=== PATIENT | female | born 1990 | race Caucasian/White ===

== ENCOUNTER 2016-09-04 11:23 | Day surgery (SDC) | payer BC ==
[~2016-09-04 11:23] MED LIST: Buffered Lidocaine 1% SYR 3ML* 3 ML/SYR SYRINGE INTRADERM ONE; Dexamethasone IV* 4 MG/ML 1 ML (4 MG) IV SLOW PU ONE; Famotidine IV* 10 MG/ML 2 ML (20 mg) IV ONE
[2016-09-04] MEDS ORDERED: ceFAZolin 2 GM PREMIX (*) 2 GM/50 ML BAG IVPB ONE (11:46)
[2016-09-04] MEDS ORDERED: Dexamethasone IV* 4 MG/ML 1 ML (4 MG) ONE (11:47)
[2016-09-04] MEDS ORDERED: Famotidine IV* 10 MG/ML 2 ML (20 mg) ONE (11:47)
[2016-09-04] MEDS ORDERED: Bupivacaine 0.5% SDV PF* 30 ML VIAL ONE (12:43)
[2016-09-04 12:45] LABS: Manual Entry Verification AS; UR Preg Internal Control QC Line Present; UR Preg Kit Lot# 6060104
[2016-09-04] MEDS ORDERED: Midazolam* 1 MG/ML 5 ML VIAL (5 MG) ONE (13:08)
[2016-09-04] MEDS ORDERED: fentaNYL* 50 MCG/ML 2 ML VIAL (100 MCG VIAL) ONE ×4 (13:08→15:19)
[2016-09-04] MEDS ORDERED: Ketorolac INJ* 30 MG/ML 1 ML VIAL ONE (13:22)
[2016-09-04] MEDS ORDERED: Lidocaine 2% PF * 5 ML VIAL ONE (13:22)
[2016-09-04] MEDS ORDERED: Propofol* 10 MG/ML 20 ML BTL IV PUSH ONE (13:22)
[2016-09-04] MEDS ORDERED: KETAMINE HCL* 50 MG/ML 10 ML VIAL ONE (13:31)
[2016-09-04] MEDS ORDERED: PROCHLORPERAZINE INJ 5 MG/ML 2 ML VIAL IV PRN (13:49)
[2016-09-04] MEDS ORDERED: oxyCODONE/Acetamin 5/325 MG* TAB ONE (14:45)
[2016-09-04] MEDS: fentaNYL* 50 MCG/ML 2 ML VIAL (100 MCG VIAL) IV PRN ×5 (14:48→15:28)
[2016-09-04] MEDS: oxyCODONE/Acetamin 5/325 MG* TAB PO PRN ×2 (14:49→14:51)
[2016-09-04] MEDS ORDERED: PROCHLORPERAZINE INJ 5 MG/ML 2 ML VIAL ONE (15:15)
[2016-09-04] MEDS ORDERED: Morphine INJ* 10 MG/ML 1 ML CARPUJECT ONE (16:21)
[2016-09-04 16:31] VITALS: BP 136/85
--- NOTE | 2016-09-05 02:49 | OP ---
DATE OF OPERATION: 09/04/16 [facility] DATE OF : [birth year] SURGEON: Solitario Hoffman MD FURRIER DESIGNER: Susan Ortiz PA-C ANESTHESIOLOGIST: Vinny Contreras MD ANESTHESIA: General PRE-OP DIAGNOSIS: Malunion, right medial malleolar osteotomy POST-OP DIAGNOSIS: Malunion, right medial malleolar osteotomy. OPERATIVE PROCEDURE: Revision, right medial malleolar osteotomy. DESCRIPTION OF PROCEDURE: The patient was taken to the operating room, general anesthesia administered. We opened up longitudinally over the medial malleolus and removed the previous 4-0 screws. We then identified the plane of the osteotomy using a small C-wire and the mini C-arm. We then created new osteotomy where the old one lay and re-reduced the medial malleolus translating this distally a few millimeters. X-ray intraoperatively showed satisfactory position. We then used a spring plate of one-third tubular along the direct medial aspect of the medial malleolus and the screws were placed medial to lateral. This compressed the osteotomy in its anatomic location. We also removed the small mini fragment screw from the osteochondral defect, which appeared very healthy. We closed the subcu with 2-0 Vicryl and ramon for the skin and a compression dressing plaster splint. [id number]/[facility] #: [id number] [facility]
--- NOTE | 2016-09-05 07:47 | RAD ---
INDICATION: Right ankle revision tibial osteotomy, M 93.271 COMPARISONS: August 21, 2016 TECHNIQUE: Fluoroscopy was provided for a surgical procedure. Total fluoroscopy time is: 9.2 seconds FINDINGS: Spot images demonstrate internal fixation of the distal tibia IMPRESSION: FLUOROSCOPY WAS PROVIDED FOR A SURGICAL PROCEDURE CPT II Codes: 6045F
== END 2016-09-04 17:08 | disposition home or self-care (01) ==
LOC: OR 11:23
PROVIDERS: ATTEND Orthopaedic Surgery
DX: T84.3 Mechanical complication of other bone devices, implants and grafts (principal)
CPT/HCPCS: 76000; 81025; 87070; 87073; 87205; 88300; A9270-GY; C1713; C1776; J0690; J0780; J1100; J1885; J2250; J2270; J2704; J3010

== ENCOUNTER 2019-03-26 19:44 | Inpatient (IN) | payer BC, MEDICAID ==
[2019-03-26 20:18] LABS: Urine Appearance Cloudy; Urine Bacteria 1+ (Absent); Urine Bilirubin Negative (Negative); Urine Blood Negative (Negative); Urine Color Yellow; Urine Glucose Negative (Negative); Urine Granular Casts Present (Absent); Urine Ketones 1+ (Negative); Urine Nitrite Negative (Negative); Urine Protein 1+(30 mg/dL) (Negative); Urine Red Blood Cell Trace(0-2/hpf) (Absent); Urine Specific Gravity 1.013 (1.010-1.030); Urine Squamous Epithelial Cell Present (Absent); Urine Urobilinogen Negative (Negative); Urine White Blood Cell Trace(0-5/hpf) (Absent)
[2019-03-26 20:24] LABS: Urine Benzodiazepine Screen None Detected (None Detect); Urine Opiates Screen None Detected (None Detect)
[2019-03-26 21:16] LABS: ABS Basophils 0.1 10^3/ul (0-0.2); ABS Eosinophils 0.1 10^3/ul (0-0.6); ABS Lymphocytes 2.6 10^3/ul (1.0-4.8); ABS Monocytes 0.4 10^3/ul (0-0.8); ABS Neutrophils 11.6 10^3/ul (1.5-7.7); Eosinophil % 0.3 %; Hematocrit 39 % (35-47); Hemoglobin 13.5 g/dL (12.0-16.0); Lymphocyte % 17.6 %; Mean Corpuscular HGB Conc 35 g/dL (31-36); Mean Corpuscular Hemoglobin 32 pg (27-31); Mean Corpuscular Volume 93 fL (80-97); Mean Platelet Volume 8.3 fL (7.4-10.4); Nucleated Red Blood Cells % 0.1; Platelet Count 327 10^3/uL (150-450); Red Blood Count 4.22 10^6 /uL (3.70-4.87); Red Cell Distribution Width 15 % (10-15); White Blood Count 14.7 10^3/uL (3.5-10.8)
[2019-03-26] MEDS ORDERED: Lactated Ringers 1000 ML Bag* 1,000 ML IV ONE (21:34)
[2019-03-26] MEDS ORDERED: Promethazine INJ(RESTRICTED)* 25 MG/ML 1 ML VIAL IV PRN (21:34)
[2019-03-26] MEDS ORDERED: Nalbuphine* 10 MG/ML 1 ML VIAL IV PRN (21:34)
--- NOTE | 2019-03-26 21:54 | HP ---
General Information - Reason for Visit Patient reports large gush of clear fluid approx 1830 and increasingly strong contractions since then. - General Information Maternal Age: 28 Grav: 1 Para: 0 SAB: 0 IEA: 0 Estimated Due Date: 04/04/19 Determined By: LMP Maternal Blood Type and Rh: A Positive - Results this Serology/RPR Result: Non-Reactive Rubella Result: Non-Immune HBsAg Result: Negative HIV Result: Negative GBS Culture Result: Negative Past Medical History Delivery History: See Records Delivery History Comment: No previous pregnancies Pertinent Past Medical History: See Records Past Medical History Comment: ADD on Ritalin Eczema Migraine Pertinent Past Surgical History: See Records Past Surgical History Comment: ORIF Right ankle, 2016 with revision 2017 Pertinent Family History: See Records Family History Comment: Colon Ca NH - Antepartal Records Antepartal Records: Reviewed, Complicated by: - On Ritalin, HSV positive Review of Systems Constitutional: Uncomfortable CV Complaint: No Respiratory: Shortness of Breath: No Gastrointestinal: No Nausea/Vomiting, Normal Bowel Movement Genitourinary: Leaking Fluid, No Dysuria, Spotting Musculoskeletal: Contractions Neurological: No Headache, No Visual Changes Movement: Normal Exam Allergies/Adverse Reactions: Allergies MS No Known Drug Allergy [No Known Drug Allergy] Allergy (Verified 03/12/19 22: 28) Unknown Reaction Details AVIS Allergy (Intermediate, Uncoded 03/12/19 22:28) ITCHY THROAT Vital Signs 03/26/19 20:00 Temperature 97.7 F Pulse Rate 120 Respiratory 22 Rate Blood Pressure 132/94 (mmHg) O2 Sat by Pulse 100 Oximetry Lab Values - Entire Visit: Laboratory Tests 03/26/19 03/26/19 03/26/19 20:02 20:02 20:58 WBC 14.7 H RBC 4.22 Hgb 13.5 Hct 39 MCV 93 MCH 32 H MCHC 35 RDW 15 Plt Count 327 MPV 8.3 Neut % (Auto) 78.7 Lymph % (Auto) 17.6 Ross % (Auto) 2.5 Eos % (Auto) 0.3 Baso % (Auto) 0.9 Absolute Neuts (auto) 11.6 H Absolute Lymphs (auto) 2.6 Absolute Monos (auto) 0.4 Absolute Eos (auto) 0.1 Absolute Basos (auto) 0.1 Absolute Nucleated RBC 0.0 Nucleated RBC % 0.1 Urine Color Yellow Urine Appearance Cloudy Urine pH 6.0 Ur Specific Sterling 1.013 Urine Protein 1+(30 mg/dl) A Urine Ketones 1+ A Urine Blood Negative Urine Nitrate Negative Urine Bilirubin Negative Urine Urobilinogen Negative Ur Leukocyte Esterase Negative Urine WBC (Auto) Trace(0-5/hpf) Urine RBC (Auto) Trace(0-2/hpf) Ur Squamous Epith Cells Present A Urine Bacteria 1+ A Granular Casts Present A Urine Glucose Negative Urine Opiates Screen None detected Ur Barbiturates Screen None detected Ur Phencyclidine Scrn None detected Ur Amphetamines Screen None detected U Benzodiazepines Scrn None detected Urine Cocaine Screen None detected U Cannabinoids Screen None detected Blood Type 03/26/19 20:58 WBC RBC Hgb Hct MCV MCH MCHC RDW Plt Count MPV Neut % (Auto) Lymph % (Auto) Ross % (Auto) Eos % (Auto) Baso % (Auto) Absolute Neuts (auto) Absolute Lymphs (auto) Absolute Monos (auto) Absolute Eos (auto) Absolute Basos (auto) Absolute Nucleated RBC Nucleated RBC % Urine Color Urine Appearance Urine pH Ur Specific Sterling Urine Protein Urine Ketones Urine Blood Urine Nitrate Urine Bilirubin Urine Urobilinogen Ur Leukocyte Esterase Urine WBC (Auto) Urine RBC (Auto) Ur Squamous Epith Cells Urine Bacteria Granular Casts Urine Glucose Urine Opiates Screen Ur Barbiturates Screen Ur Phencyclidine Scrn Ur Amphetamines Screen U Benzodiazepines Scrn Urine Cocaine Screen U Cannabinoids Screen Blood Type A Positive - Measurements Height: 5 ft 7 in Weight: 182 lb Weight in lbs: 182.683179 Body Mass Index (BMI): 28.5 Pre- Weight: 182 lb Weight Gained This : 0 lbs and 0 ozs - Exam Breast: Breast Exam Deferred CVA: No CVA Tenderness Extremities: No Edema Heart: Normal Rhythm/Heart Sounds HEENT: No Significant Findings Lungs: Clear Bilaterally Rectal: Rectal Exam Deferred Reflexes: DTR 2+, - - no clonus Thyroid: - - WNL @ entry to care - Abdominal Exam Abdomen Exam: Non-Tender, Fundal Height Consistent with Dates - Ultrasound/Biophysical Profile Ultrasound Status: Not Done Targeted Exam Findings See L&D Outpatient Visit Provider Note for Findings: Yes Estimated Weight: 7.5-8lb Cervical Exam: 1cm Effacement: 50% Station: -2 Presenting Part: Vertex Membrane Status: SROM Amniotic Fluid Evaluation: Gross Rupture Bleeding/Discharge: Bloody Show EFM Findings - External Monitor Findings Baseline Heart Rate: 125 External Monitor Findings: Accelerations Present, No Pattern of Variable or Late Decelerations, Variability Moderate Contractions: Regular, Moderate, < 45 Seconds Contraction Frequency: Q 2-4 min Assessment/Plan - Assessment IUP @ 38+5 weeks gestation with spontaneous rupture of membranes, in early labor. No evidence acidemia. - Plan Plan: Admit - Anticipate Vaginal Delivery Plan Comment: Admit to L&D, patient will eventually desire labor epidural. For now to try hydrotherapy, consider therapeutic rest with nubain/phenergan. Encouraged rest vs some movement if more comfortable in upright positions. Anticipate SVB. - Date/Time of Admission Date of Admission: 03/26/19 Time of Admission: 20:22
[2019-03-26] MEDS ORDERED: Lactated Ringers 1000 ML Bag* 1,000 ML IV SCH (22:00)
--- NOTE | 2019-03-26 23:54 | PN ---
Progress Note - Progress Note Date of Service: 03/26/19 Note: S: Feeling like contractions are stronger, feeling them more in her back. Wants to consider pain medication. O: VE 1.5cm/90/-1 FHT 125 doppler UCs q 2-3 min A: IUP @ 38+5 weeks gestation in early labor P: Patient to continue coping on yoga ball, movement. Declines nubain/ phenergan. Will consider epidural with further cervical dilation.
[2019-03-27] MEDS ORDERED: OBEPIDURAL* 250 ML EPIDURAL ONE (04:50)
--- NOTE | 2019-03-27 04:52 | PN ---
Progress Note - Progress Note Date of Service: 03/27/19 Note: S: Patient reports contractions stronger. She got "fifteen minutes" of sleep after nubain/phenergan. She would like epidural. O: VE 3cm/100/-1 FHT 125, +accels, no decels, mod aissatou UCs q 2-3 min VSS, afebrile A: IUP @ 38+3 weeks gestation in early labor No evidence acidemia P: PARQ discussion epidural, patient would like to proceed. Anesthesia aware and on way to unit.
[2019-03-27] MEDS ORDERED: Phenylephrine 40 MCG/ML SYRINGE IV PUSH PRN (05:46)
[2019-03-27] MEDS ORDERED: Lactated Ringers 1000 ML Bag* 1,000 ML IV ONE (05:46)
[2019-03-27] MEDS ORDERED: Sodium Citrate/Citric Acid* 15 ML UDC PO PRN (05:46)
[2019-03-27] MEDS ORDERED: Famotidine TAB* 20 MG PO PRN (05:46)
[2019-03-27] MEDS ORDERED: OBEPIDURAL* 250 ML EPIDURAL SCH (06:00)
[2019-03-27] MEDS ORDERED: Lactated Ringers 1000 ML Bag* 1,000 ML IV SCH ×2 (06:00→13:00)
--- NOTE | 2019-03-27 09:30 | PN ---
Progress Note - Progress Note Date of Service: 03/27/19 Note: S: Patient reports some sleep, very comfortable with epidural. No pressure or pain, would like VE. O: VE 5-6cm/100/-1 FHT 130, Cat 1 UCs q 3-5 min VSS, afebrile A: IUP @ 38+6 weeks gestation in active labor Spontaneous rupture of membranes No evidence acidemia P: Encouraged side to side position changes with peanut ball. Discussed possibly using pitocin if contractions slow or progress slows. Will recheck with new pressure or pain or approx 4 hours. Anticipate SVB.
[2019-03-27] MEDS ORDERED: Witch Hazel PAD* JAR TOPICAL PRN (12:05)
[2019-03-27] MEDS ORDERED: Dibucaine 1% 28.35 GM TUBE PR PRN (12:05)
[2019-03-27] MEDS ORDERED: Glycerin ADULT SUPP PR PRN (12:05)
--- NOTE | 2019-03-27 12:21 | PROCNOTE ---
[facility] OB: Delivery Note - Delivery A Date of : 03/27/19 Time of : 11:35 [place] Sex: Male - "Brooks" Weight at : 6 lb 11 oz Score 1 Minute: 8 Score 5 Minutes: 9 Gestational Age in Weeks and Days at Delivery: 38 Weeks and 6 Days Delivery Method: Spontaneous Vaginal Labor: Spontaneous Did Patient attempt ?: N/A, No Previous Amniotic Fluid: Clear Estimated Blood Loss: 250 Anesthesia/Analgesia: CEI for Labor Delivered By: Elina Parada - Nursery Level of Nursery: Regular/Bedside - Perineum Perineal Injury: Left Mediolateral, Perineal Laceration, 1st Degree Perineal Injury Comment: Two stitch perineal, 1 stitch labial repair Perineal Repair: By Delivering Practioner - Events Delivery Events of Note: None Apply - Additional Delivery Notes Additional Delivery Notes: Patient admitted after spontaneous rupture of membranes at home yesterday evening. Received epidural as desired once early labor pattern established; good pain control. Steady progress to complete lead to increased pelvic pressure and urge to push. Length of active labor 16"10', pushed 40 min. Baby born OA to RHYS @ 1135, shoulders followed with maternal efforts, delivered to maternal abdomen with spontaneous respirations, HR >110. Cord doubly clamped and cut by sister of patient (Merna) once pulsations ceased, at approx 4 min. Placenta delivered in Derik presentation with gentle cord traction @ 1140 and noted to have 3VC, intact appearing membranes. Fundus firm to massage. Perineum closely inspected and repaired as above. Baby [id number] and both mother and baby stable. EBL 250ml.
[2019-03-27] MEDS ORDERED: Lidocaine 1% INJ* 10 MG/ML 30 ML SDV ONE (15:11)
[2019-03-27] MEDS: Ibuprofen TAB* 600 MG PO PRN (15:53)
[2019-03-27] MEDS: Acetaminophen TAB* 325 MG PO PRN ×2 (15:54→21:28)
[2019-03-27] MEDS: Docusate CAP* 100 MG PO SCH (21:28)
[2019-03-28] MEDS: Ibuprofen TAB* 600 MG PO PRN ×2 (04:42→16:54)
[2019-03-28 05:38] LABS: ABS Eosinophils 0.1 10^3/ul (0-0.6); ABS Lymphocytes 2.8 10^3/ul (1.0-4.8); ABS Monocytes 0.6 10^3/ul (0-0.8); ABS Neutrophils 10.5 10^3/ul (1.5-7.7); Hematocrit 34 % (35-47); Hemoglobin 11.5 g/dL (12.0-16.0); Lymphocyte % 19.9 %; Mean Corpuscular HGB Conc 34 g/dL (31-36); Mean Corpuscular Hemoglobin 32 pg (27-31); Mean Corpuscular Volume 94 fL (80-97); Platelet Count 297 10^3/uL (150-450); Red Blood Count 3.58 10^6 /uL (3.70-4.87); Red Cell Distribution Width 15 % (10-15); White Blood Count 14.1 10^3/uL (3.5-10.8)
[2019-03-28] MEDS ORDERED: Ferrous Gluconate TAB* 324 MG TAB PO SCH (09:00)
[2019-03-28] MEDS ORDERED: Measles, Mumps,Rubella VACC* 0.5 ML/VIAL SUBCUT ONE (09:00)
[2019-03-28] MEDS: Docusate CAP* 100 MG PO SCH ×3 (09:51→21:34)
[2019-03-28] MEDS: Acetaminophen TAB* 325 MG PO PRN (21:34)
[2019-03-29] MEDS: Ibuprofen TAB* 600 MG PO PRN (00:37)
[2019-03-29] MEDS: Acetaminophen TAB* 325 MG PO PRN (05:13)
[2019-03-29] MEDS: Docusate CAP* 100 MG PO SCH (08:39)
[2019-03-29 09:14] VITALS: BP 117/62
== END 2019-03-29 12:40 | disposition home or self-care (01) | DRG 560 ==
LOC: MCHOBOUT 19:44 → MCHOB 20:22
PROVIDERS: ADMIT Midwife; ATTEND Midwife
PROC: 10E0XZZ Delivery of Products of Conception, External Approach (ICD-10-PCS; principal; 2019-03-27)
PROC: 0HQ9XZZ Repair Perineum Skin, External Approach (ICD-10-PCS; 2019-03-27)
DX: O42.02 Full-term premature rupture of membranes, onset of labor within 24 hours of rupture (principal); Z37.0 Single live birth; O99.344 Other mental disorders complicating childbirth; F90.9 Attention-deficit hyperactivity disorder, unspecified type; O70.0 First degree perineal laceration during delivery; Z3A.38 38 weeks gestation of pregnancy
CPT/HCPCS: 36415; 80307; 81003; 81015; 85025; 86850; 86900; 86901; 87086; 90707; A9270-GY; J2300; J2550